=== PATIENT | female | born 1985 | race Caucasian/White ===

== ENCOUNTER 2016-08-31 11:07 | Emergency (ER) | payer OTHER ==
[~2016-08-31] VITALS: Ht 165.1 cm; Wt 109.1 kg
[2016-08-31 11:14] VITALS: BP 124/87; PULSE 83; RESP 16; O2SAT 99
--- NOTE | 2016-08-31 12:21 | ED.REPORT ---
HPI-Trauma Minor / Fall Date of Service Aug 31, 2016 ED Provider: El Pretty PA-C Rachell is an otherwise healthy 31-year-old female who presents with tailbone pain. She reports the pain began approximately 2 hours ago when she fell roller skating. She states that her feet went out from under her and she sat down hard. She is able walk Denies bowel/bladder dysfunction, saddle anesthesia. Denies sexual activity and . Nursing Notes Stated Complaint: POST FALL LOWER BACK Chief Complaint: Back Pain or Injury Nursing Notes Reviewed: Yes Allergies: Coded Allergies: No Known Drug Allergies (Verified Allergy, Unknown, 08/31/16) No Active Prescriptions or Reported Meds General Time Seen by MD: 12:11 Chief Complaint Other (low back pain) Past Medical History Past Medical History Denies Review of Systems Review of Systems Note: Negative unless stated otherwise in history of present illness Physical Exam General: Well appearing, well developed, well nourished, no acute distress. Head: Atraumatic, normocephalic. Eyes: No scleral icterus or injection. No discharge. Vision grossly intact. ENT: Voice clear, hearing grossly intact. Respiratory: Regular rate and rhythm. Breath sounds present, clear to auscultation and equal bilaterally. No respiratory distress. No increased work of breathing, speaks in complete sentences. Cardiovascular: Regular rate and rhythm, without murmur, gallop or rub. No pedal edema. Skin: Warm and dry. Back: Normal to inspection, negative the lumbar and thoracic spinous process tenderness. Mild sacral tenderness. Neurological: Normal gait, moving all limbs normally. Grossly nonfocal. Psychological: Alert and oriented. Speech appropriate, linear and logical. Behavior appropriate. Initial Vital Signs Vital Signs (First) Date Time Temp Pulse Resp B/P Pulse Ox O2 Delivery O2 Flow Rate FiO2 08/31/16 11:14 36.7 83 16 124/87 99 Room Air Initial VS: Reviewed, Vital signs normal Interpretation & Diagnostics X-Ray Interpretation Xray Interpretation: PROCEDURE: X-RAY SACRUM AND COCCYX, MINIMUM THREE VIEWS ([id number]) INDICATIONS: coccyx pain IMPRESSION: No displaced fracture seen. If there is continued pain, followup exam or additional imaging such as MRI or CT could be performed for further assessment. Re-Eval/Medical Decision Med Decision/Clinical Course Otherwise healthy 31-year-old female fell backwards rollerskating sat down hard. Reports lower back and tailbone pain. Denies radiculopathy, bowel/ bladder dysfunction, saddle anesthesia. X-ray of coccyx and sacrum revealed no fracture. Physical examination of the back is reassuring that there is unlikely to be a fracture thoracic or lumbar spine. No neurological deficits. This is a lower back contusion secondary to the fall. The not concerned about a fracture, cauda equina syndrome. Stable and safe for discharge to home Advised [id number] analgesia, primary care follow-up and provided return precautions. Patient understands and agrees with the plan. Discharge & Departure Impression: Primary Impression: Contusion of lower back Encounter type: initial encounter Qualified Code: S30.0XXA - Contusion of lower back and pelvis, initial encounter Disposition: Home Discharge Condition All VS Reviewed: Yes Condition: Stable Patient Instructions: Acute Low Back Pain (ED) Additional Instructions: Evaluation for low back pain following a fall. X-rays reveal no fracture and your tailbone or sacrum. History and physical examination are reassuring that there is unlikely to be a fracture elsewhere in your spine. There does not appear to be any neurological damage. I believe you are stable and safe for discharge to home. It is best to to avoid heavy lifting for the next few days, but remained active as much as possible. Light activity as tolerated is best. Continue to ice the affected area several more times today. After that you will probably find warm compresses more helpful. The pain is best treated with 600 mg of ibuprofen (Advil, Motrin) every 6 hours, or 1000 mg of acetaminophen ( Tylenol) every 6 hours. These drugs can be taken at the same time for more severe pain. Follow-up with her primary care provider if her symptoms are not improved significantly in 5-7 days. Return to emergency department for any new or worsening symptoms including increasing pain, bowel/bladder dysfunction, numbness between your legs. Referrals: El Verdin ND (PCP) EDSupervising Provider for APC: Malachi Delarosa MD copies to: El Verdin ND, Seth PA-C Aug 31, 2016 12:21
--- NOTE | 2016-08-31 13:18 | DRSVH ---
PROCEDURE: X-RAY SACRUM AND COCCYX, MINIMUM THREE VIEWS ([id number]) INDICATIONS: coccyx pain TECHNIQUE: 3 views of the sacrum and coccyx acquired. COMPARISON: None. FINDINGS: Bones: No fractures or dislocations. No suspicious bony lesions. Soft tissues: Visualized bowel gas pattern is normal. No suspicious soft tissue densities. IMPRESSION: No displaced fracture seen. If there is continued pain, followup exam or additional winifred ging such as MRI or CT could be performed for further assessment. Dictated by: Gabe Man RRA Interpreted: Charu Santacruz MD on 08/31/2016 at 13:17 Transcribed by: MARISSA on 08/31/2016 at 13:18 Approved by: Charu Santacruz MD, PhD on 08/31/2016 at 17:01
[2016-08-31 14:31] VITALS: PULSE 77; RESP 16; O2SAT 97
== END 2016-08-31 14:32 | disposition home or self-care (01) ==
LOC: SED 11:07
DX: S30.0XXA Contusion of lower back and pelvis, initial encounter (principal); V00.121A Fall from non-in-line roller-skates, initial encounter; Y93.51 Activity, roller skating (inline) and skateboarding; Y92.9 Unspecified place or not applicable; Y99.8 Other external cause status

== ENCOUNTER 2016-12-20 11:59 | Emergency (ER) | payer OTHER ==
[~2016-12-20] VITALS: Ht 165.1 cm; Wt 111.4 kg
[2016-12-20 12:01] VITALS: BP 146/94; PULSE 94; RESP 16; O2SAT 99
--- NOTE | 2016-12-20 12:12 | ED.REPORT ---
HPI-Extremity Problem Lower Date of Service Dec 20, 2016 ED Provider: Dr. Wei Pt is a generally healthy 31 y/o female presenting to the ED due to right ankle injury which occurred yesterday night. The patient was walking in her garden last night and rolled her right ankle and since then has been experiencing pain. She denies numbness or weakness of the ankle or any other sites of injury. Nursing Notes Stated Complaint: RT ANKLE PAIN Chief Complaint: Extremity Trauma Nursing Notes Reviewed: Yes Allergies: Coded Allergies: No Known Drug Allergies (Verified Allergy, Unknown, 12/20/16) No Active Prescriptions or Reported Meds General Time Seen by MD: 12:11 Chief Complaint Ankle injury right Hx Obtained From: Patient Arrived By: Walk-in Onset Occurred: 9 - 12 hours ago Symptom Duration: Since onset Location: : Ankle right Quality: Painful Severity: Current: Moderate Severity: Maximum: Moderate Past Medical History Past Medical History Denies Past Surgical History None reported Smoking History Never Smoker Social History Alcohol Use: "Social" Drug Use: Denies drug use Ambulatory Status Independent Review of Systems Constitutional: Denies: Chills, Fever Musculoskeletal: Reports: Extremity pain, Extremity swelling, Denies: Back pain, Neck pain Skin: Reports Bruising Neurologic: Denies: Change LOC, Headache Complete sys rev & neg: except as marked. Respiratory: Denies: Pleuritic pain Cardiovascular: Denies: Chest pain GI: Denies: Abdominal pain Physical Exam Initial Vital Signs Vital Signs (First) Date Time Temp Pulse Resp B/P Pulse Ox O2 Delivery O2 Flow Rate FiO2 12/20/16 12:01 37.1 94 16 146/94 99 Room Air Initial VS: Reviewed, Vital signs normal Head / Eyes: Atraumatic, Normocephalic, PERRL ENT: Mucous membranes moist, Conjunctiva normal, No scleral icterus Neck: Supple, Full range of motion Respiratory: No respiratory distress Cardiovascular: Intact distal pulses Upper Extremities: Vascular intact, Neuro intact, No swelling Skin: Warm, Dry, No cyanosis Neurologic: Alert, Oriented, Nonfocal Psychiatric: Mood/affect normal, Behavior normal, Normal thought content Lower Extremity / Pelvis / MS: No deformity, Neurologic intact, Vascular intact Ankle / Foot: No deformity, Neurologic intact, Vascular intact RLE: Lateral malleolar tenderness with swelling Abrasion anterior right knee General/Constitutional: Awake, Alert, No acute distress, Well appearing, Cooperative, Not toxic appearing Interpretation & Diagnostics X-Ray Interpretation Xray Interpretation: IMPRESSION: No acute fractures. Lateral ankle soft tissue swelling. Dictated by: Kit Gay M.D. on 12/20/2016 at 12:17 Approved by: Kit Gay M.D. on 12/20/2016 at 12:18 Study Performed: 3 views X-Ray Ordered: Ankle right Interpretation / Wet Read by: Interpret - Radiologist Re-Eval/Medical Decision Med Decision/Clinical Course Ankle sprain without evidence of fracture declines tetanus. Re-Evaluation/Progress : Time of Eval: 13:18 Re-Evaluation/Progress Note: Pt rechecked. She is refusing a TDAP vaccination. Informed pt of plan for treatment. Pt understands and agrees with plan for treatment. F/U instructions and RTER warnings given. All questions addressed. Counseled Regarding: Diagnosis, Need for follow-up, When/why to return to ED Discharge & Departure Impression: Primary Impression: Right ankle sprain Encounter type: initial encounter Involved ligament of ankle: unspecified ligament Qualified Code: S93.401A - Sprain of unspecified ligament of right ankle, initial encounter Disposition: Home Discharge Condition All VS Reviewed: Yes Condition: Stable Patient Instructions: Ankle Sprain (GEN) Additional Instructions: You came into the ED for a right ankle injury. Your evaluation today included x- ray and physical exam. The x-ray showed no broken bones. You have sprained your ankle. You can wear your aircast for ankle support and pain control when walking. You can ice (15 min on, 15 min off) and take Tylenol or ibuprofen for pain. It is important to start range of motion exercises early (tomorrow). You were offered a Tdap vaccine today to prevent tetanus infection, which you refused. Return to the ED if you have leg redness, increasing swelling, fever, chills, difficulty moving your jaw, shortness of breath, or chest pain. Follow-up with your primary care physician if you need documentation to take time off work. You can follow-up with your primary care physician or an orthopedic surgeon if your ankle is not improving in 4-6 weeks. Referrals: El Verdin ND (PCP) Scribe Attestation Portions of this note were transcribed by Guillermo Bess. I, Dr. Wei, personally performed the history, physical exam and medical decision-making; I reviewed and confirmed the accuracy of the information in the transcribed note. Signed by Katherine Michele, 12/20/16 - 1240 copies to: El Verdin ND, Timothy S DO Dec 20, 2016 12:12 GUILLERMO BESS Dec 20, 2016 12:29
--- NOTE | 2016-12-20 12:25 | DRSVH ---
PROCEDURE: X-RAY RIGHT ANKLE, MINIMUM THREE VIEWS ([id number]) INDICATIONS: trauma ,pain and swelling TECHNIQUE: 3 views of the ankle were acquired. COMPARISON: None. FINDINGS: Bones: No fractures or dislocations. Ankle mortise is normally aligned. No suspicious bony lesions . Soft tissues: No tibiotalar joint effusion. Achilles tendon appears normal. Lateral soft tissue sw elling. IMPRESSION: No acute fractures. Lateral ankle soft tissue swelling. Dictated by: Kit Gay M.D. on 12/20/2016 at 12:17 Approved by: Kit Gay M.D. on 12/20/2016 at 12:18
[2016-12-20] MEDS ORDERED: TdaP Vaccine 0.5 mL Inj IM ONE (12:30)
[2016-12-20 13:36] VITALS: BP 113/78; PULSE 75; RESP 16; O2SAT 98
== END 2016-12-20 13:36 | disposition home or self-care (01) ==
LOC: SED 11:59
DX: S93.491A Sprain of other ligament of right ankle, initial encounter (principal); X50.1XXA Overexertion from prolonged static or awkward postures, initial encounter; Y93.89 Activity, other specified; Y92.019 Unspecified place in single-family (private) house as the place of occurrence of the external cause; Y99.8 Other external cause status